=== PATIENT | female | born 1970 | race African-American/Black ===

== ENCOUNTER 2020-03-31 07:27 | Day surgery (SDC) | payer OTHER ==
--- NOTE | 2020-03-30 13:01 | Pre-Procedure Note/Attestation ---
Pre-Procedure Note/Attestation Complete Prior to Procedure Planned Procedure: left Procedure Narrative: Left knee scope, medial meniscectomy and chondroplasty Indications for Procedure Pre-Operative Diagnosis: left knee medial meniscus tear Attestation I attest that I discussed the nature of the procedure; its benefits; risks and complications; and alternatives (and the risks and benefits of such alternatives ), prior to the procedure, with the patient (or the patient's legal public utilities sales representative). I attest that, if there was a reasonable possibility of needing a blood transfusion, the patient (or the patient's legal public utilities sales representative) was given the [facility] standardized written summary, pursuant to the [place] Blood Safety Act ([place] Health and Safety Code # 1645, as amended). I attest that I re-evaluated the patient just prior to the surgery and that there has been no change in the patient's H&P, except as documented below: NONE Pardeep Hwang MD March 30, 2020 13:01
[~2020-03-31] VITALS: Ht 162.6 cm; Wt 122.5 kg
[2020-03-31] VITALS (8 sets, daily range): BP systolic 95–156; BP diastolic 41–95
[~2020-03-31 07:27] MED LIST: ASPIRIN81 MG ORAL; ATORVASTATIN CA40 MG ORAL; CARDIZEM CD180 MG ORAL; FUROSEMIDE20 M1 ORAL; ISOSORBIDE MONO30 M1 PO; K-TAB10 MEQ PO; METFORMIN HCL500 M1 ORAL; NITRO0.4 SL; ZOLOFT100 MG ORAL; ceFAZolin 1gm IVPB IVPB ONE; celeBREX 200mg Cap **SURGERY PATIENTS ONLY ORAL ONE; oxyCONTIN 10mg tab ORAL ONE
[2020-03-31] MEDS ORDERED: Tylenol #3 tab (300mg/30mg) ORAL PRN (07:45)
[2020-03-31] MEDS ORDERED: HYDROmorphone 1mg/ml Carpuject SUBQ PRN (07:45)
[2020-03-31] MEDS ORDERED: HYDROcodone/Acetamin 5/325 tab ORAL PRN (07:45)
[2020-03-31] MEDS ORDERED: celeBREX 200mg Cap **SURGERY PATIENTS ONLY ORAL ONE (08:15)
[2020-03-31] MEDS ORDERED: oxyCONTIN 10mg tab ORAL ONE (08:15)
[2020-03-31 08:23] LABS: BASOPHILS % (AUTO) 1.6 % (0.0-2.0); EOSINOPHILS % (AUTO) 2.7 % (0.0-3.0); HEMATOCRIT 40.6 % (37.0-47.0); HEMOGLOBIN 14.1 G/DL (12.0-16.0); LYMPHOCYTES % (AUTO) 34.4 % (20.0-45.0); MEAN CORPUSCULAR VOLUME 88 FL (80-99); MONOCYTES % (AUTO) 8.2 % (1.0-10.0); NEUTROPHILS % (AUTO) 53.1 % (45.0-75.0); PLATELET COUNT 178 K/UL (150-450); RED BLOOD COUNT 4.61 M/UL (4.20-5.40); WHITE BLOOD COUNT 6.3 K/UL (4.8-10.8)
[2020-03-31] MEDS ORDERED: Lidocaine 1% MPF 10mg/ml 5ml ONE ×2 (09:00→09:02)
[2020-03-31] MEDS ORDERED: LR 1000ml ONE (09:00)
[2020-03-31] MEDS ORDERED: Midazolam 2mg/2ml Inj ONE (09:02)
[2020-03-31] MEDS ORDERED: fentaNYL 100 mcg/2 mL IV ONE (09:02)
[2020-03-31] MEDS ORDERED: Ropivacaine 5mg/ml Vial 20ml INJ ONE (09:04)
[2020-03-31] MEDS ORDERED: LR 1000ml 1,000 ML IVLG SCH (09:28)
--- NOTE | 2020-03-31 09:28 | Anethesia Preoperative Eval ---
Anesthesia Pre-op PMH/ROS General Date of Evaluation: March 31, 2020 Anesthesiologist: Frank ASA Score: ASA 3 Mallampati Score Class I : Soft palate, uvula, fauces, pillars visible Class II: Soft palate, uvula, fauces visible Class III: Soft palate, base of uvula visible Class IV: Only hard plate visible Mallampati Classification: Class III Surgeon: Eri Diagnosis: Left knee internal derangement Surgical Procedure: Left knee arthroscopy with medial meniscectomy Anesthesia History: none Family History: no anesthesia problems Allergies: Coded Allergies: CLINDAMYCIN (Verified Allergy, Unknown, 03/30/20) Medications: see eMAR Patient NPO?: Yes NPO Date: March 31, 2020 NPO Time: 00:00 Past Medical History Cardiovascular: Reports: HTN, CAD - Mi in 2017, denies CP/SOB, reports METS>4, NV, other - HLD; Denies: valve dz, arrhythmia Pulmonary: Denies: asthma, COPD, TREVOR, other Gastrointestinal/Genitourinary: Reports: GERD, other - esophageal spasms; Denies: CRI, ESRD Neurologic/Psychiatric: Reports: depression/anxiety; Denies: dementia, CVA, TIA, other Endocrine: Reports: DM; Denies: hypothyroidism, steroids, other HEENT: Denies: cataract (L), cataract (R), glaucoma, [place] (L), [place] (R), other Hematology/Immune: Denies: anemia, DVT, bleeding disorder, other Musculoskeletal/Integumentary: Denies: OA, RA, DJD, DDD, edema, other Other: obesity - morbid obesity PSxH Narrative: gavin BYRON Anesthesia Pre-op Phys. Exam Physician Exam Last Vital Signs Date Time Temp Pulse Resp B/P (MAP) Pulse Ox O2 Delivery O2 Flow Rate FiO2 03/31/20 08:08 Room Air 03/31/20 08:07 97.8 89 18 154/90 89 Constitutional: NAD Cardiovascular: RRR Respiratory: CTA Airway Exam Mallampati Score: Class III MO: limited ROM: limited Anesthesia Pre-op A/P Labs Hematology Test 03/31/20 08:15 White Blood Count 6.3 K/UL (4.8-10.8) Red Blood Count 4.61 M/UL (4.20-5.40) Hemoglobin 14.1 G/DL (12.0-16.0) Hematocrit 40.6 % (37.0-47.0) Mean Corpuscular Volume 88 FL (80-99) Mean Corpuscular Hemoglobin 30.6 PG (27.0-31.0) Mean Corpuscular Hemoglobin Concent 34.8 G/DL (32.0-36.0) Red Cell Distribution Width 12.0 % (11.6-14.8) Platelet Count 178 K/UL (150-450) Mean Platelet Volume 6.4 FL (6.5-10.1) L Neutrophils (%) (Auto) 53.1 % (45.0-75.0) Lymphocytes (%) (Auto) 34.4 % (20.0-45.0) Monocytes (%) (Auto) 8.2 % (1.0-10.0) Eosinophils (%) (Auto) 2.7 % (0.0-3.0) Basophils (%) (Auto) 1.6 % (0.0-2.0) Studies Pre-op Studies: EKG - sr Risk Assessment & Plan Assessment: ASA III Plan: GA Status Change Before Surgery: No Pre-Antibiotics Drug: Ancef 2g Given Within 1 Hr of Incision: Yes Lisa Marie MD March 31, 2020 09:28
[2020-03-31] MEDS ORDERED: DiphenhydrAMINE 50mg/ml Inj IVP PRN (09:30)
[2020-03-31] MEDS ORDERED: fentaNYL 100 mcg/2 mL IV PRN (09:30)
[2020-03-31] MEDS ORDERED: Ketorolac 30mg Inj IV PRN (09:30)
[2020-03-31] MEDS ORDERED: LORazepam Inj 2mg/ml 1ml IV PRN (09:30)
[2020-03-31] MEDS ORDERED: Hydromorphone 0.5mg/0.5ml inj IVP PRN (09:30)
[2020-03-31] MEDS ORDERED: Metoclopramide 10mg/2ml Inj IVP PRN (09:30)
[2020-03-31] MEDS ORDERED: NS Irrig 4000ml IRRIG ONE (09:37)
[2020-03-31] MEDS ORDERED: Metoclopramide 10mg/2ml Inj ONE (09:44)
--- NOTE | 2020-03-31 09:59 | Brief Operative Note ---
Immediate Post Operative Note Operative Note Chief Complaint: left knee pain Pre-op Diagnosis: left knee meniscus tear Procedure: left knee scope, medial and lateral meniscectomy with chondroplasty Post-op Diagnosis: same as pre-op Findings: consistent w/pre-op dx studies Surgeon: md samuel Mess Attendant Crew: dakota contreras Anesthesiologist: md gianluca Anesthesia: general Specimen: none Complications: none Condition: stable Fluids: ns Estimated Blood Loss: minimal Drains: none Implant(s) used?: No Yolande Contreras March 31, 2020 09:59
--- NOTE | 2020-03-31 10:09 | Immediate Post-Op Evaluation ---
Immediate Post-Op Evalulation Immediate Post-Op Evalulation Procedure: Left knee arthroscopy Date of Evaluation: March 31, 2020 Time of Evaluation: 10:09 IV Fluids: 600 Blood Products: 0 Estimated Blood Loss: min Urinary Output: 0 Blood Pressure Systolic: 104 Blood Pressure Diastolic: 43 Pulse Rate: 83 Respiratory Rate: 16 O2 Sat by Pulse Oximetry: 96 Temperature (Fahrenheit): 98.4 Pain Score (1-10): 0 Nausea: No Vomiting: No Complications 0 Patient Status: awake, reacts, patent, none Hydration Status: adequate Drug: Ancef 2g Given Within 1 Hr of Incision: Yes Lisa Marie MD March 31, 2020 10:09
--- NOTE | 2020-03-31 10:10 | 48 Hour Post Anesthesia Eval ---
Post Anesthesia Evaluation Procedure: Left knee arthroscopy Date of Evaluation: March 31, 2020 Airway: patent Nausea: No Vomiting: No Hydration Status: adequate Cardiopulmonary Status: at baseline Mental Status/LOC: patient returned to baseline Post-Anesthesia Complications: 0 Follow-up care needed: ready to discharge Lisa Marie MD March 31, 2020 10:10
[2020-03-31] MEDS ORDERED: D5 1/2NS 1,000 ML IV SCH (12:00)
--- NOTE | 2020-03-31 16:59 | Operative Note - Dictated ---
DATE OF OPERATION: 03/31/2020 PREOPERATIVE DIAGNOSIS: Left knee medial meniscus tearing. POSTOPERATIVE DIAGNOSES: 1. Left knee diffuse chondral damage underneath the patella as well as the medial femoral condyle and corresponding medial tibial plateau. 2. Left knee posterior horn and body of the lateral meniscus tear involving 20% lateral meniscus. 3. Left knee posterior horn and body medial meniscus tear involving 25% of the medial meniscus. PROCEDURE: 1. Left knee arthroscopy and extensive intra-articular shaving. 2. Left knee patellofemoral as well as medial femoral chondroplasty. 3. Left knee partial lateral meniscectomy involving 20% posterior horn and body lateral meniscus. 4. Left knee partial medial meniscectomy involving 25% of the posterior horn and body of the medial meniscus. SURGEON: Pardeep Hwang MD. DOCUMENT DESIGN SPECIALIST: Yolande Miguel PA-C. Tram Driver was present during the actual operative portion of the case and was important and essential part of the operation. During the operation, the surgical services assistant held and operated the arthroscopic camera for visualization, assisted by manipulating the leg to help with visualization, and helped with essential parts of the repair process as necessary such as operating surgical instruments under surgeon supervision, suture management, and wound closures. ANESTHESIOLOGIST: Lisa Marie MD. ANESTHESIA: General LMA anesthesia. TOURNIQUET TIME: 25 minutes. EBL: Minimal. COMPLICATIONS: None. SURGICAL INDICATION: Patient is a 49-year old female who sustained the above injury to her knee. The patient was treated non-operative initially, but this did not alleviate the patients symptoms. Therefore, after discussing all non-surgical and surgical options, and discussing all foreseeable risk and benefits of surgery, the patient opted for surgical treatment as described above. PATIENT POSITIONING: Patient was brought to the operating room table and placed supine. All pressure points were well padded. General Anesthesia was induced and a well padded tourniquet was placed on the thigh. The lateral post was placed and positioned to allow for opening of the medial compartment of the knee without placing pressure over the fibular head. Patients entire leg was prepped and draped in the usual sterile fashion. Time out was performed and preop abx was given and after exsanguinating the lower extremity, the tourniquet was inflated to 275 mm of mercury. EXAMINATION OF THE KNEE UNDER ANESTHESIA: Before prepping and draping the knee and while the patient was relaxed under general anesthesia, the knee was examined for ROM, and anterior and posterior, medial and lateral, posterolateral, and posteromedial instability. Pivot shift testing was performed. There was no evidence of loss of motion or instability and the pivot shift testing was negative. PORTAL PLACEMENT: The lateral portal was placed with the knee flexed to 90 degrees at the level of inferior border of the patella in line with the lateral border of the patella. A cm skin incision was made with an eleven blade, and using a blunt obturator, the capsule was gently penetrated. Sterile saline solution was then infused inside the knee with the aid of a pump set at 35 mm mercury pressure. Under direct visualization, placement of the medial portal was preliminary judged using a spinal needle, and it was subsequently established using the same technique as the lateral portal. Care was given not to injure the cutaneous branches of the medial Saphenous nerve or the subcutaneous veins. DIAGNOSTIC ARTHROSCOPY: The suprapatellar patellar pouch was visualized. There was no evidence of scar tissue or loose fragments. The medial and lateral patellar facets and trochlear groove articular cartilage was visualized. There was extensive chondral damage underneath the patella with osteophyte formation superiorly, inferiorly. There was medial lateral patellar facet chondral damage with chondral flaps. The trochlea had diffuse chondral damage with unstable chondral flaps. The medial plica shelf and the corresponding medial femoral condyle articular cartilage were visualized. There was no significantly thickening of the medial plica shelf and there were no kissing? lesion over the medial femoral condyle. The lateral gutter and the posterolateral corner of the knee were visualized. There was an osteophyte over the posterolateral corner, but there were no loose bodies. The popliteus tendon and other structures, posterior horn of the knee were intact. At this point, the knee was placed in the figure of four position and the lateral compartment was entered. The lateral femoral condyle, lateral tibial plateau, and the anterior, body, and the posterior horn of the lateral meniscus were visualized and probed. The articular surfaces were intact and devoid of articular cartilage damage. There was a free edge tear of the posterior horn and body of the lateral meniscus involving 20% of lateral meniscus. The knee was then placed at 90 degree and the ACL and PCL were visualized and probed. The ACL was completely intact on visualization and probing, and it had excellent tension. The PCL was completely intact on visualization and probing and it had excellent tension. The medial compartment was then entered and the medial femoral condyle, medial tibial plateau, and the anterior, body, and the posterior horn of the medial meniscus were visualized and probed. There was diffuse chondral damage of the medial femoral condyle measuring 3 x 4 centimeter with some unstable chondral flaps. There was horizontal cleavage tear of the posterior horn and body of the medial meniscus involving 25% of the medial meniscus. The medial gutter was visualized. There was no evidence of defect or loose fragments. The scope was then brought back to the patella femoral compartment. OPERATIVE ARTHROSCOPY: At this point, all loose debris and fragments were removed with the use of suction motorized shaver. Specific attention was given to assure all visible loose fragments were irrigated out of the knee joint with pump inflow and cannula outflow system. For patella femoral chondroplasty: The frayed articular cartilage of the undersurface of the patella and the trochlear groove were debrided using a motorized shaver. Suction was used to pull in the loose fragments and flaps of the cartilage and to minimize damage to the intact and well attached portion of the cartilage. This allowed for a smooth surface for the articular cartilage gliding. For lateral meniscectomy: At this point, attention was given to the lateral meniscus. Using combination of baskets and sharda, the torn portion of the lateral meniscus was removed. Attention was given to remove all displaced and unstable portion of the lateral meniscus while maintaining as much of the functional portion of the meniscus as possible. Approximately, 20% of the posterior horn and body of the meniscus was removed in this fashion. The transition between the meniscectomy portion and intact portion of the meniscus was smoothed out with combination of small baskets and sharda. Excellent transition zone was obtained in this fashion. For medial meniscectomy: At this point, attention was given to the medial meniscus. Using combination of baskets and sharda, the torn portion of the medial meniscus was removed. Attention was given to remove all displaced and unstable portion of the medial meniscus while maintaining as much of the functional portion of the meniscus as possible. Approximately, 25% of the posterior horn and body of the medial meniscus was removed in this fashion. The transition between the meniscectomy portion and intact portion of the meniscus was smoothed out with combination of small baskets and sharda. Excellent transition zone was obtained in this fashion. For medial compartment chondroplasty: Care was given to the area of cartilage damage in the medial compartment. The frayed and loose fragments of articular cartilage were debrided using a motorized shaver. Suction was used to pull in the loose fragments and flaps of the cartilage and to minimize damage to the intact and well attached portion of the cartilage. This allowed for smooth surfaces for the articular cartilage. CONDITION AT DISCHARGE FROM OPERATING ROOM: The knee was irrigated with copious amount of normal saline at the end of the procedure. The scope was removed and the water was drained. The skin edges were re-approximated and sterile dressing was applied. All lap count and instrument counts were correct. Patient tolerated the procedure well without complications and was taken to the recovery room in stable conditions. Pardeep Hwang M.D. DR: BEKA JOB#: [id number] CC:
== END 2020-03-31 12:00 | disposition home or self-care (01) ==
LOC: SUR 07:27
DX: S83.282A Other tear of lateral meniscus, current injury, left knee, initial encounter (principal); S83.242A Other tear of medial meniscus, current injury, left knee, initial encounter; I11.9 Hypertensive heart disease without heart failure; I25.2 Old myocardial infarction; E78.5 Hyperlipidemia, unspecified; K21.9 Gastro-esophageal reflux disease without esophagitis; F32.9 Major depressive disorder, single episode, unspecified; F41.9 Anxiety disorder, unspecified; E11.9 Type 2 diabetes mellitus without complications; E66.01 Morbid (severe) obesity due to excess calories; Z90.49 Acquired absence of other specified parts of digestive tract; Z68.42 Body mass index [BMI] 45.0-49.9, adult; X58.XXXA Exposure to other specified factors, initial encounter; Y92.9 Unspecified place or not applicable
CPT/HCPCS: 29880; 36415; 85025; 94003; J0690; J2250; J2405; J2704; J2765; J2795; J3010; J7120; 94150